=== PATIENT | male | born 1975 | race Caucasian/White ===

== ENCOUNTER → 2022-02-13 | Outpatient (REF) | LOC: M PLAIMG 14:33 | PROVIDERS: ATTEND Internal Medicine | DX: Z00.00 Encounter for general adult medical examination without abnormal findings (principal) ==

== ENCOUNTER → 2024-01-01 | Outpatient (REF) | LOC: M PLAIMG 11:41 | PROVIDERS: ATTEND Internal Medicine | DX: R52 Pain, unspecified (principal) ==